=== PATIENT | female | born 1970 | race African-American/Black ===

== ENCOUNTER 2019-02-14 11:38 | Inpatient (IN) | payer BC ==
[~2019-02-14] VITALS: Ht 149.9 cm; Wt 95.3 kg
[2019-02-14] MEDS ORDERED: ASPIRIN 81M81 MG/TA2 PO (11:55)
[2019-02-14] MEDS ORDERED: TENORMIN 5050 MG/TAB PO (11:57)
[2019-02-14] MEDS ORDERED: CATAPRES 0.1MG0.1 MG PO (11:58)
[2019-02-14] MEDS ORDERED: HUMALOG100 U/ML SQ ×3 (12:00→12:02)
[2019-02-14] MEDS ORDERED: HCTZ 25MG TAB25 MG PO (12:04)
[2019-02-14] MEDS ORDERED: LASIX 20MG TABL20 MG PO (12:05)
[2019-02-14] MEDS ORDERED: ZESTRIL40 MG PO (12:06)
[2019-02-14] MEDS ORDERED: SOLIQUA 100 UNIT3 ML SQ (12:08)
[2019-02-14 12:22] VITALS: BP 160/83; PULSE 81; TEMP 98.4
[2019-02-14 15:38] VITALS: BP 147/77; PULSE 56; TEMP 98
[2019-02-14 15:44] VITALS: BP 163/77; PULSE 95; TEMP 98.4
--- NOTE | 2019-02-14 18:17 | NUR ---
Pt came to floor as transfer from [facility], no C/O pain or discomfort since arriving, initial assessments completed, VS have been stable, systolic pressures have been high in the 106+ range.
[2019-02-14 19:47] VITALS: BP 163/92; PULSE 98; TEMP 98.1
[2019-02-14 21:09] LABS: HEMATOCRIT 37.3 % (37.0-47.0); HEMOGLOBIN 11.4 g/dl (12.5-16.0); MEAN CELL VOLUME 78 fl (80.0-100.0); MEAN CORPUSCULAR HEMOGLOBIN 24 pg (27.0-31.0); MEAN CORPUSCULAR HGB CONC 31 g/dl (33.0-37.0); PLATELET COUNT 243 K/mm3 (130-400); RED BLOOD COUNT 4.78 M/mm3 (4.10-5.30); REDCELL DISTRIBUTION WIDTH-CV 16.4 % (11.5-14.5)
[2019-02-14 21:15] LABS: PROTHROMBIN TIME 11.4 SECONDS (9.7-12.8)
[2019-02-14 21:18] LABS: PARTIAL THROMBOPLASTIN TIME 38.6 SECONDS (26.0-37.0)
[2019-02-14 21:21] LABS: CALCIUM 8.8 mg/dL (8.4-10.2); CREATININE, serum 1.2 (0.52-1.25); POTASSIUM 4.7 mmol/L (3.4-5.0)
--- NOTE | 2019-02-14 23:30 | NUR ---
Pt has had an uneventful first part of this shift. EKG was done per RT. Takes po meds without any problems. Right arm with several areas of bruising from IV sticks prior to coming to this floor. Will continue to monitor. Call light in reach.
[2019-02-14 23:45] VITALS: BP 157/66; PULSE 92; TEMP 97.6
[2019-02-15] VITALS (16 sets, daily range): BP systolic 140–222; BP diastolic 69–113; PULSE 86–112; TEMP 97.9–98.6
--- NOTE | 2019-02-15 05:40 | NUR ---
Consent signed and placed on front of chart. 325mg po ASA given as ordered. Denies any c/o chest pain thru the night. Call light within reach. Pt took sip of water with ASA.
[2019-02-15 06:34] LABS: BASO % 0.4 % (0.0-2.0); EOS # 0.1 (0.0-0.7); EOS % 0.7 % (0-4.0); GRAN # 4.3 (1.4-6.5); GRAN % 63.1 % (42.2-75.2); HEMOGLOBIN 10.9 g/dl (12.5-16.0); LYMPH % 29.2 % (20.0-51.0); MEAN CELL VOLUME 78 fl (80.0-100.0); MEAN CORPUSCULAR HEMOGLOBIN 24 pg (27.0-31.0); MEAN CORPUSCULAR HGB CONC 30 g/dl (33.0-37.0); MEAN PLATELET VOLUME 10.8 fl (7.4-10.4); MONO # 0.5 (0.1-0.6); MONO % 6.5 % (1.7-9.3); PLATELET COUNT 237 K/mm3 (130-400); RED BLOOD COUNT 4.59 M/mm3 (4.10-5.30); REDCELL DISTRIBUTION WIDTH-CV 16.5 % (11.5-14.5)
--- NOTE | 2019-02-15 06:45 | NUR ---
Pt is awake and A/Ox4. She denies pain at this time. Pt remains NPO for upcoming procedure. Pt denies any other needs.
[2019-02-15 06:47] LABS: ALBUMIN 3.3 gm/dL (3.5-5.0); BILIRUBIN,TOTAL 0.3 mg/dL (0.0-1.0); CALCIUM 8.7 mg/dL (8.4-10.2); CREATININE, serum 1.2 (0.52-1.25); POTASSIUM 4.7 mmol/L (3.4-5.0); TOTAL PROTEIN 6.6 gm/dL (6.4-8.2)
--- NOTE | 2019-02-15 06:57 | NUR ---
Report given to PERLA Morocho.
--- NOTE | 2019-02-15 07:30 | NUR ---
Pt to engineering lab technician with PERLA Mcguire.
--- NOTE | 2019-02-15 07:54 | NUR ---
ALL MEDICATIONS GIVEN VORB WITH MD. SEE MERGE FOR ALL MEDICATION ADMIN TIMES. SEE MERGE FOR ALL RASS ASSESSMENTS DURING AND POST PROCEDURE. POSITIVE BARBEAU'S TEST IN THE RIGHT WRIST, PULSE +2.
--- NOTE | 2019-02-15 09:45 | NUR ---
Nitroglycerine gtt infusing at 25mcg/min from [facility]
--- NOTE | 2019-02-15 09:45 | NUR ---
Pt arrived from [facility] on ICU bed to room 4 with 2 cathlab RNs present, monitors transfered to ICU monitoring system. VSS, reports of Nausea "but its a little better now". PRN orders for nausea obtained from MD Rui. TR-Band and Femoral sheath in place and stable. Femoral artery line hooked to pressure tubing in place from [facility], sheath flushes without difficutly. 1030: ACT: 130seconds - Cathlab team notified 1039 RT Kate from [facility] present to remove sheath 1043: Sheath pulled by RT Kate, manual pressure applied
--- NOTE | 2019-02-15 09:50 | NUR ---
IV site (left upper arm) appears edematous and red, IVF infusing on gravity tubing without difficulty, pt denies pain at insertion site
--- NOTE | 2019-02-15 10:00 | NUR ---
Patient transported to ICU 4 at this time with Zoll in place for monitoring. Bedside report given to PERLA Boyle. Patient hooked back up to monitoring equipment, VS stable. Patient denies any pain at this time. Visualized Nitro gtt with RN. Visualized right wrist and right groin with RN. TR band remains in place with 18 ml of air in the band. Cap refill <3 seconds. Right arterial sheath remains in place, hooked up to pressure bag will remain in place until parameters met for removal. Discussed importance of head flat and leg straight with patient. Bed in locked and lowest position, call light within reach.
--- NOTE | 2019-02-15 11:06 | NUR ---
Kate,RT completed with manual pressure, site stable with no hematoma, dressing applied. Groin precautions education provided to pt.
--- NOTE | 2019-02-15 11:18 | NUR ---
Report phoned to BaileeRN - informed of PCI, and IV insertion site redness and swelling. Questions invited and answered
--- NOTE | 2019-02-15 11:20 | NUR ---
Nitroglycerine gtt discontinued per MD Jania transfer orders
--- NOTE | 2019-02-15 11:30 | NUR ---
Pt returned back to room 318 from ICU with PERLA Boyle. Pt is awake and A/Ox4. Right groin site is free of complications, soft and free of hematoma. Dressing is CDI. TR band to right wrist is also free of complications. 2 mL of air released from TR band by PERLA Boyle during handoff for a remaining 14 mL. Pt reports feelings slightly nauseous, given saltine crackers. Pt updated on plan of care by Dr. Moran. Pt to be on bedrest for 4 hrs.
--- NOTE | 2019-02-15 11:44 | NUR ---
Bedside assessment completed with Bailee,RN, groin site and radial site assessed together - both remain stable and unchanged. Pt denies pain
--- NOTE | 2019-02-15 13:51 | NUR ---
Pt doing well post cath. Right radial and right femoral site remain free of complications. Pt sipping on diet sprite. Denies any other needs.
--- NOTE | 2019-02-15 14:07 | NUR ---
RICHARD met with the patient to discuss a discharge plan. The pt lives in [place] with her Davian. The pt does not use DME and reports independence with ADLS. The pt's PCP is Carrington Willingham PA-C and receives medications from [facility] with no difficulties. The pt does not have advanced directives in the EMR but was interested in obtaining a DPOA-HC. SW provided DPOA-HC. The pt plans to return home upon discharge. There are no additional needs at this time.
--- NOTE | 2019-02-15 14:13 | NUR ---
5 ML air released from TR band to right wrist. No s/s of bleeding.
--- NOTE | 2019-02-15 14:55 | NUR ---
ADDITIONAL 5 ML OF AIR RELEASED FROM TR BAND WITHOUT COMPLICATIONS. RIGHT GROIN SITE IS FREE OF COMPLICATIONS. PT DENIES ANY NEEDS AT THIS TIME.
--- NOTE | 2019-02-15 15:33 | NUR ---
Remaining 4 mL of air released from TR band, no s/s of bleeding. TR band removed and bandaid applied. Pt also off bedrest at this time. Pt slightly dizzy when sitting on the side of the bed, but it resolves quickly. No s/s of bleeding to right groin.
--- NOTE | 2019-02-15 17:27 | NUR ---
Pt is sitting up in chair. Doing well post heart cath. Denies any pain or needs.
[2019-02-16 04:17] VITALS: BP 149/61; PULSE 96; TEMP 97.8
[2019-02-16 07:33] VITALS: PULSE 103
[2019-02-16 07:35] VITALS: BP 155/67; PULSE 102; TEMP 98.1
--- NOTE | 2019-02-16 07:40 | NUR ---
Report recieved from PERLA Villa. Patient resting in bed at this time. Right femoral site and right radial site both CDI soft and free of hematoma. Patient denies chest pain or pressure. Care assumed at this time.
[2019-02-16] MEDS ORDERED: NEURONTIN300 MG/CAP PO (08:26)
[2019-02-16] MEDS ORDERED: ZORVOLEX35 MG PO (08:27)
[2019-02-16] MEDS ORDERED: RESTORIL 1515 MG/CAP PO (08:28)
[2019-02-16] MEDS ORDERED: BRILINTA90 MG PO (08:35)
[2019-02-16] MEDS ORDERED: LIPITOR20 MG PO (08:35)
--- NOTE | 2019-02-16 09:45 | NUR ---
Patient discharge education provided. Understanding verbalized by patient and . Pharmacy at bedside to provide brilinta education and resources.
--- NOTE | 2019-02-16 09:57 | NUR ---
Initial visit; Patient thanked Wash Worker for looking in on her and offering God's blessings.
--- NOTE | 2019-02-16 10:07 | NUR ---
Patient discharge via ambulation to private car. Care completed.
== END 2019-02-16 10:08 | disposition home or self-care (01) | DRG 247 ==
LOC: MEDICAL 11:38
PROVIDERS: Internal Medicine Interventional Cardiology; ADMIT Student in an Organized Health Care Education/Training Program
PROC: 027034Z Dilation of Coronary Artery, One Artery with Drug-eluting Intraluminal Device, Percutaneous Approach (ICD-10-PCS; principal; 2019-02-15)
PROC: 4A023N7 Measurement of Cardiac Sampling and Pressure, Left Heart, Percutaneous Approach (ICD-10-PCS; 2019-02-15)
PROC: B2111ZZ Fluoroscopy of Multiple Coronary Arteries using Low Osmolar Contrast (ICD-10-PCS; 2019-02-15)
DX: I21.4 Non-ST elevation (NSTEMI) myocardial infarction (principal); Z68.42 Body mass index [BMI] 45.0-49.9, adult; R07.89 Other chest pain; E11.22 Type 2 diabetes mellitus with diabetic chronic kidney disease; N18.3 Chronic kidney disease, stage 3 (moderate); I12.9 Hypertensive chronic kidney disease with stage 1 through stage 4 chronic kidney disease, or unspecified chronic kidney disease; R78.89 Finding of other specified substances, not normally found in blood; I16.0 Hypertensive urgency; E66.01 Morbid (severe) obesity due to excess calories; E11.42 Type 2 diabetes mellitus with diabetic polyneuropathy; K21.9 Gastro-esophageal reflux disease without esophagitis; I25.10 Atherosclerotic heart disease of native coronary artery without angina pectoris; Z79.82 Long term (current) use of aspirin; Z79.4 Long term (current) use of insulin; Z98.51 Tubal ligation status; Z90.49 Acquired absence of other specified parts of digestive tract; E78.5 Hyperlipidemia, unspecified
CPT/HCPCS: C1725; C1769; C1874; C1887; C1894; C9600; J0360; J1644; J1650; J1815; J1940; J2250; J2405; J3010; Q9967